=== PATIENT | male | born 1965 | race Caucasian/White ===

== ENCOUNTER 2017-06-29 09:08 | Emergency (ER) | payer BC ==
[~2017-06-29] VITALS: Ht 162.6 cm; Wt 72.6 kg
[2017-06-29 11:32] VITALS: BP 118/64
== END 2017-06-29 11:32 | disposition home or self-care (01) ==
LOC: ED 09:08
DX: L25.9 Unspecified contact dermatitis, unspecified cause (principal)
CPT/HCPCS: J2930